=== PATIENT | female | born 1935 | race Caucasian/White ===

== ENCOUNTER 2017-05-23 09:13 | Day surgery (SDC) | payer MEDICARE, OTHER ==
[2017-05-18 14:47] LABS: BASOPHILS 0.3 %; BASOPHILS ABSOLUTE 0.02 10/3/uL (0.0-0.16); EOSINOPHILS ABSOLUTE 0.07 10/3/uL (0.0-0.53); HEMATOCRIT 30.9 % (36.0-48.0); HEMOGLOBIN 10.5 g/dL (12.0-16.0); IMMATURE GRANULOCYTES 0.1 %; IMMATURE GRANULOCYTES ABSOLUTE 0.01 10/3/uL (0.0-0.11); LYMPHOCYTES ABSOLUTE 1.74 10/3/uL (0.67-4.30); MEAN CORPUSCULAR HEMOGLOB 32.1 pg (26.0-34.0); MEAN PLATELET VOLUME 10.6 fL (9.2-13.0); MONOCYTES 8.3 %; MONOCYTES ABSOLUTE 0.58 10/3/uL (0.21-1.20); NEUTROPHILS 65.3 %; NEUTROPHILS ABSOLUTE 4.53 10/3/uL (2.02-8.40); PLATELET COUNT 205 10/3/uL (150-400); RBC DISTRIBUTION WIDTH 13.4 % (12.0-16.0); RED CELL COUNT 3.27 10/6/uL (4.0-5.6)
[2017-05-18 14:49] LABS: MANUAL DIFF NO %; MEAN CORPUSCULAR VOLUME 94.5 fL (80-100)
[2017-05-18 15:21] LABS: A/G RATIO 1.1 (0.7-1.9); ALBUMIN 3.4 G/DL (3.5-5.0); ALKALINE PHOSPHATASE 87 U/L (45-117); BUN (BLOOD UREA NITROGEN) 18 MG/DL (6-23); CALCIUM, SERUM 8.2 MG/DL (8.5-10.4); CHLORIDE, SERUM 103 MMOL/L (96-112); CO2 (CARBON DIOXIDE) 28 MMOL/L (24-34); CREATININE 0.83 MG/DL (0.55-1.02); GFR AFRICAN AMERICAN 77 ML/MIN (>=60); GFR NON AFRICAN AMERICAN 67 ML/MIN (>=60); GLUCOSE, SERUM 72 MG/DL (60-99); POTASSIUM, SERUM 4.2 MMOL/L (3.5-5.3); SGOT(AST) 16 U/L (5-40); SGPT(ALT) 23 U/L (5-65); SODIUM, SERUM 139 MMOL/L (135-148); TOTAL BILIRUBIN 0.3 MG/DL (0-1.2); TOTAL PROTEIN 6.4 G/DL (6.0-8.5)
[~2017-05-23] VITALS: Ht 149.9 cm; Wt 70.3 kg
--- NOTE | ~2017-05-23 | PREOPHP ---
PreOp History and Physical [address] [address] NAME: SERAFIN KENNEY : 39 [place]US : [place] [facility] [facility] [place] [id number] AGE: 82 ADM/REG DATE : MR#: [id number] REPORT SERV DATE: 05/23/17 DICTATED BY: TIA BREWER III DATE: 04/21/17 REPORT STATUS : Draft TRANSCRIBED BY: MODL DATE: 04/21/17 HISTORY OF PRESENT ILLNESS: This 82-year-old female comes to the operating for repair of a symptomatic incisional hernia. The patient has had a history of ovarian cancer. She is status post laparotomy. She has incisional hernia related to this surgery. The hernia is located in the mid abdomen is related to a her midline incision. The hernia is associated with local pain and discomfort for the last several weeks. She has had nausea, but no vomiting. She comes now for repair of this symptomatic incisional hernia. The patient also has a Port-A-Cath which is no longer being used. We will remove the Port-A-Cath for her. PAST MEDICAL HISTORY: 1. 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 2. Hypertension. 3. Schizophrenia. 4. History of deep venous thrombosis in the past. MEDICATIONS: 1. Reclast. 2. Zolpidem. 3. Topiramate. 4. Hydrocodone. 5. Haloperidol. 6. Amlodipine. 7. Atorvastatin. 8. Potassium. 9. Omeprazole. PAST SURGICAL HISTORY: 1. Total abdominal hysterectomy. 2. Omentectomy. 3. Bilateral oophorectomy. 4. Radical tumor debulking. 5. Sigmoid colectomy. 6. Ileocecal resection. 7. Ileostomy takedown and closure. 8. Knee replacement. ALLERGIES: NONE. FAMILY HISTORY: Positive for heart disease and stroke. REVIEW OF SYSTEMS: The patient complains of fatigue and joint pain. Her 14-point review of systems is otherwise unremarkable. PHYSICAL EXAMINATION: PreOp History and Physical [address] [address] NAME: SERAFIN KENNEY : 39 [place] : [place] [facility] [place] [id number] AGE: 82 ADM/REG DATE : MR#: [id number] REPORT SERV DATE: 05/23/17 DICTATED BY: TIA BREWER III DATE: 04/21/17 REPORT STATUS : Draft TRANSCRIBED BY: ANDREZ DATE: 04/21/17 GENERAL: This is an elderly female, in no acute distress. She is alert and appropriate, although her speech is somewhat slow and her family members answer primarily for her. HEENT: Unremarkable. Cranial nerves 2 through 12 were normal. LUNGS: Clear. CARDIAC: Normal. ABDOMEN: Soft and nontender. She has a midline incisional hernia above the navel. The fascial defect is some 4-5 cm in size. The hernia is reducible. EXTREMITIES: Normal. VITAL SIGNS: Blood pressure 100/67, pulse 81, and temperature 97.6. ASSESSMENT: 1. An 82-year-old female with symptomatic incisional hernia. 2. History of ovarian cancer, status post omentectomy, sigmoid colectomy, right colectomy, tumor debulking. 3. History of schizophrenia. 4. Hypertension. 5. History of deep venous thrombosis. PLAN: The patient comes to the operating room now for open repair of her incisional hernia and removal of her Port-A-Cath. These procedures, the risks, benefits, and alternatives, including not limited to the risk for bleeding, infection, enterotomy, injury to any abdominal structure, postop small bowel obstruction, ileus, seroma formation, hematoma formation, recurrence of the hernia, infection of the mesh or enterocutaneous fistula requiring removal of mesh, air embolus or pericardial tamponade, and unforeseen complications including deep venous thrombosis, pulmonary embolus, myocardial infarction, stroke, pneumonia, and , have been fully and completely explained to the patient and family at length prior to surgery. The fact that this is a major operation with risk for major morbidity and mortality no guarantee for relief of her symptoms were explained to them. The expected length of recovery has been explained. The patient and family had questions which have been answered. They clearly understand the risks and agreed to surgery as planned. MARY/ANDREZ Tia Brewer III, M.D. / [id number] CC: Tia Brewer III, M.D. Genesis Dias M.D.
--- NOTE | ~2017-05-23 | OP ---
Record Of Operation [facility] [address] [place]. [address] NAME: SERAFIN KENNEY : 39 STATUS : [place] [facility] [place] PAT#: [id number] AGE: 82 ADM/REG DATE : 05/23/17 MR#: [id number] REPORT SERV DATE: 05/23/17 DICTATED BY: TIA BREWER III DATE: 05/23/17 REPORT STATUS : Draft TRANSCRIBED BY: ANDREZ DATE: 05/23/17 DATE OF PROCEDURE: 05/23/2017 PREOPERATIVE DIAGNOSIS: 1. Symptomatic incisional hernia. 2. Unused right subclavian vein Port-A-Cath. POSTOPERATIVE DIAGNOSIS: 1. Symptomatic incisional hernia. 2. Unused right subclavian vein Port-A-Cath. PROCEDURE: Open repair of incisional hernia with Prolene mesh and removal of right subclavian vein Port-A-Cath. ANESTHESIA: General with intubation. COMPLICATIONS: None. ESTIMATED BLOOD LOSS: Less than 5 mL. DRAINS: None. LAP AND SPONGE COUNT: Correct x3. BRIEF HISTORY: This 82-year-old female presented with a symptomatic periumbilical incisional hernia. It was felt that open repair of this hernia is indicated. The patient also had a right subclavian vein Port-A-Cath which is no longer being used and it was felt that removal of this is indicated. These procedures, the risks, benefits, and alternatives, including not limited to the risk for bleeding, infection, enterotomy, injury to any abdominal structure, postop small bowel obstruction, ileus, recurrence of the hernia, seroma formation, hematoma formation, infection of the mesh or enterocutaneous fistula requiring removal of the mesh, air embolus, pericardial tamponade, and unforeseen complications including deep venous thrombosis, pulmonary embolus, myocardial infarction, stroke, pneumonia, and , were fully and completely explained to the patient and her family prior to surgery. The fact that this was a major operation with risk for major morbidity and mortality was explained. Their questions were answered. They understood the risks and agreed to the surgery as planned. PROCEDURE IN DETAIL: After being properly identified and after discussing the risks of surgery with the patient and family again in the preoperative area and after identifying the hernia with her help in the preoperative area, the patient was taken to the operating room and placed in the supine position on the operating room table. General anesthesia was administered. She was intubated without difficulty. The abdomen and chest were prepped and draped sterilely in the usual fashion. After an appropriate "time-out" per [facility] standards, a midline incision was made directly over the hernia, starting above the navel and continued to the lateral aspect of the navel, directly over the hernia. The incision was continued Record Of Operation [facility] [address] [facility] [place]. [address] NAME: SERAFIN KENNEY : 39 STATUS : REG [facility] [place] PAT#: [id number] AGE: 82 ADM/REG DATE : 05/23/17 MR#: [id number] REPORT SERV DATE: 05/23/17 DICTATED BY: TIA BREWER III DATE: 05/23/17 REPORT STATUS : Draft TRANSCRIBED BY: ANDREZ DATE: 05/23/17 through the subcutaneous tissue. Hemostasis was controlled with cautery. The hernia sac was identified and opened. There was some bowel within this which was carefully dissected free from the hernia sac and reduced back in the abdominal cavity. Using sharp dissection, the skin and subcutaneous tissue around the defect anteriorly was fully mobilized. The adhesions on the underside of the fascia posteriorly were divided around the entire periphery of the defect so as to fully define the defect anteriorly and posteriorly. It was noted that the patient's abdominal wall fascia was very thin and attenuated but this was the only hernia which we identified in this area. A light weight Prolene mesh patch was selected. This was placed beneath the fascia so as to align around the edges of the fascia and underline it by 2 to 3 cm. The mesh was then secured around the edges of the defect with interrupted #1 Prolene sutures. Upon completion of this, the mesh lay nicely posterior to the defect. It was not twisted or kinked in anyway and was not under any tension. Great care was taken not to injure the bowel during this process. The fascia was then closed anterior to the mesh using interrupted #1 Prolene sutures. They came together nicely with no tension. Hemostasis was assured. The wound was irrigated copiously with saline. The subcutaneous tissue was closed with a running 3-0 chromic suture. The skin was closed with a running subcuticular 4-0 Monocryl stitch. The incision was injected with 0.5% Marcaine. We then turned our attention to the right infraclavicular Port-A-Cath. An incision was made directly over this. The incision was continued through the subcutaneous tissue. Hemostasis was controlled with cautery. The Port-A-Cath capsule was divided and the Port-A-Cath retaining sutures were divided. The Port-A-Cath and tubing were removed. The entire tubing was removed. Pressure was held at the exit site of the tubing from the subcutaneous tissue to prevent air embolus. This exit site was closed with a 3-0 Vicryl suture. Hemostasis was assured. The subcutaneous tissue was closed with a running 3-0 Vicryl suture. The skin was closed with a running subcuticular 4-0 Monocryl stitch. The incision was injected with 0.5% Marcaine. Dressings were applied. Anesthesia was reversed, and the patient was taken to the recovery room in stable condition. She tolerated the procedure well. Her family was informed of the results of surgery. The patient will be discharged when stable and comfortable and able to void and ambulate. Her family was advised that she should keep wounds clean and dry for 48 hours, that she should not drive for three to four days after the surgery or avoid using narcotics, that she should resume her usual medications, and that she should not perform any heavy lifting for five to six weeks. She has been asked to return in two weeks for followup sooner if any nausea, vomiting, fever, chills, abdominal pain, weakness, or other problems prior to that time. She was given a prescription for Percocet 7.5 one t.i.d., #12, as needed for pain, which she was advised not to use while driving or with other narcotics. MARY/MODL Tia Brewer III, M.D. / [id number] CC: Record Of Operation [address] [address] NAME: SERAFIN KENNEY : 39 STATUS : REG [facility]#: [id number] AGE: 82 ADM/REG DATE : 05/23/17 MR#: [id number] REPORT SERV DATE: 05/23/17 DICTATED BY: TIA BREWER III DATE: 05/23/17 REPORT STATUS : Draft TRANSCRIBED BY: MODL DATE: 05/23/17 Rocio Wang III, M.D.
[~2017-05-23 09:13] MED LIST: AMB10 PO; BACDS PO; C5 PO; COG2 PO; COMP10B PO; Haldol IM; IRON SUPPLEMENT PO; KLOR-CON 1010 MEQ PO; L20 PO; LOVENOX40 SC; MYCOSCROI TOP; NORCO1 TA1 PO; NORV5 PO; PCET PO; PRILO PO; RECLAST IV; REMERON45 MG PO; T PO; TOPAMAX25 PO; ULTRAM50 PO
== END 2017-05-23 14:36 | disposition home or self-care (01) ==
LOC: SDC 09:13
PROVIDERS: Surgery
PROC: 0WUF0JZ Supplement Abdominal Wall with Synthetic Substitute, Open Approach (ICD-10-PCS; principal; 2017-05-23 10:45)
PROC: 0JPV0XZ Removal of Tunneled Vascular Access Device from Upper Extremity Subcutaneous Tissue and Fascia, Open Approach (ICD-10-PCS; 2017-05-23 10:45)
DX: K43.2 Incisional hernia without obstruction or gangrene (principal); I10 Essential (primary) hypertension; K21.9 Gastro-esophageal reflux disease without esophagitis; F20.9 Schizophrenia, unspecified; G43.909 Migraine, unspecified, not intractable, without status migrainosus; F41.9 Anxiety disorder, unspecified; F32.9 Major depressive disorder, single episode, unspecified; D64.9 Anemia, unspecified; M19.90 Unspecified osteoarthritis, unspecified site; M85.80 Other specified disorders of bone density and structure, unspecified site; M81.0 Age-related osteoporosis without current pathological fracture; E66.9 Obesity, unspecified; Z68.31 Body mass index [BMI] 31.0-31.9, adult; Z85.43 Personal history of malignant neoplasm of ovary; Z92.21 Personal history of antineoplastic chemotherapy; Z96.653 Presence of artificial knee joint, bilateral; Z96.1 Presence of intraocular lens; Z98.41 Cataract extraction status, right eye; Z98.42 Cataract extraction status, left eye; Z90.49 Acquired absence of other specified parts of digestive tract; Z90.710 Acquired absence of both cervix and uterus; Z79.899 Other long term (current) drug therapy; Z98.890 Other specified postprocedural states
CPT/HCPCS: 71020; 80053; 85025; 87641; 88300; 93005; A9270-GY; C1781; J0690; J2270; J2405; J2710; J3010